=== PATIENT | male | born 1960 | race Caucasian/White ===

== ENCOUNTER 2022-11-24 07:07 | Day surgery (SDC) | payer OTHER, SELFPAY ==
[2022-10-17 08:24] VITALS: BMI 27.1
[2022-11-09 14:14] VITALS: BMI 27.1
--- NOTE | 2022-11-23 15:17 | P.HP_ITS ---
History of Present Illness History of Present Illness Consent: Risks, benefits, and alternatives have been discussed and questions answered. Patient agrees to proceed with procedure. Chief complaint: Neoplasm Screening Narrative: Moi Loja is a 62 year old male Referred for colon cancer screening. He has a family history of colon cancer. 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 Review of Systems Review of Systems: All systems reviewed & are unremarkable except as noted in HPI and below PMFSH Past Medical History Medical History Hyperlipidemia Overweight Smoker Surgical History Surgical History Hx of cervical spine surgery Family History Family History Father Colon cancer Mother CHF (congestive heart failure) Social History Social History Smoking packs per day: 1 Smoking cigarettes per day: 20.0 Years smoked: 40 Smoking pack-years: 40.00 Smoking status: Current every day smoker Tobacco type: cigarettes Alcohol intake: current Alcohol use details: socially Substance use: never Substance use type: does not use Living arrangements: with family Spiritual care concerns: No Meds Home Medications and Allergies Home Medications Medication Instructions Recorded Confirmed Type varenicline 0.5 mg (11)-1 mg (42) See Rx Instructions PO PER PKG DIR 09/29/22 11/24/22 Rx tablets in a dose pack ([email or web address] #53 ea Starting Month Box) rosuvastatin 40 mg tablet 40 mg PO DAILY #90 tabs 10/14/22 11/09/22 Rx Allergies Allergy/AdvReac Type Severity Reaction Status Date / Time No Known Allergies Allergy Verified 11/24/22 08:01 Exam Const: General: alert Orientation/consciousness: patient oriented x3 Resp: Auscultation: clear to auscultation bilaterally Cardio: Rhythm: regular rhythm GI: GI Palp: Yes Soft to palpation and No Tenderness to palpation present (GI) Neuro: General: patient oriented x3 Assessment and Plan Assessment and plan (1) Colon cancer screening: Code(s): Z12.11 - Encounter for screening for malignant neoplasm of colon Status: Acute Assessment and Plan: Colonoscopy with possible biopsy or polypectomy or cautery or injection of substances.
[2022-11-24 07:53] VITALS: BP 135/90; PULSE 85; RESP 18; TEMP 36.7; O2SAT 98; BMI 27.1
[2022-11-24] MEDS: LACTATED RINGERS 1,000 ML 150 ML IV CONT (08:10)
--- NOTE | 2022-11-24 08:18 | WPDANESEPPF ---
Anes - Initial Pre Proc Eval Procedure: Operation Date: 11/24/22 09:00 Proposed Procedures p Screening Colonoscopy - Aldo Woo MD Date/Time: 11/24/22 08:18 Surgeon: Aldo Woo MD Pre Op Diagnosis: Neoplasm Screening Patient Data Age: 62 Gender: M Height: 1.78 m Weight: 85.6 kg Last Vital Signs Temp 36.7 C 11/24/22 07:53 Pulse 85 11/24/22 07:53 Resp 18 11/24/22 07:53 BP 135/90 11/24/22 07:53 Pulse Ox 98 11/24/22 07:53 O2 Del Method Room Air 11/24/22 07:53 Allergies Allergy/AdvReac Type Severity Reaction Status Date / Time No Known Allergies Allergy Verified 11/24/22 08:01 Home Medications Medication Instructions Recorded Confirmed Type varenicline 0.5 mg (11)-1 mg (42) See Rx Instructions PO PER PKG DIR 09/29/22 11/24/22 Rx tablets in a dose pack ([employer] #53 ea Starting Month Box) rosuvastatin 40 mg tablet 40 mg PO DAILY #90 tabs 10/14/22 11/09/22 Rx Patient hx anesthesia problems: none Family hx anesthesia problems: none Results Review: All pre-operative results and documents have been reviewed as part of the pre-operative evaluation. [facility] Past Medical History Medical History Hyperlipidemia Overweight Smoker Surgical History Surgical History Hx of cervical spine surgery Family History Family History Father Colon cancer Mother CHF (congestive heart failure) Social History Social History Smoking packs per day: 1 Smoking cigarettes per day: 20.0 Years smoked: 40 Smoking pack-years: 40.00 Smoking status: Current every day smoker Tobacco type: cigarettes Alcohol intake: current Alcohol use details: socially Substance use: never Substance use type: does not use Living arrangements: with family Spiritual care concerns: No Anes - Eval Final PreProcedure Day of Procedure 11/24/22 08:18 Patient weight: overweight Heart: regular rate and rhythm Lungs: clear to auscultation Airway: Mallampati scale class II Neurological: alert and oriented Last oral intake: >/= 8 hours ASA classification: III Emergent: no Anesthetic plan: proceed Anesthesia type and monitoring: general GIVS and standard monitoring Results Review: All pre-operative results and documents have been reviewed as part of the pre-operative evaluation. Informed Consent: The patient's anesthetic plan and its attendant risks and benefits were discussed with the patient/family/POA. Questions were solicited and answers provided to the satisfaction of the patient/family/POA.
[2022-11-24 09:24] VITALS: BP 116/66; PULSE 83; RESP 14; O2SAT 97
[2022-11-24 09:36] VITALS: BP 119/99; PULSE 86; RESP 14; O2SAT 98
[2022-11-24 09:44] VITALS: BP 139/87; PULSE 70; RESP 15; O2SAT 99
--- NOTE | 2022-11-24 09:48 | WPDANESPN ---
Anes - Prog Note Post-Op Date/Time: 11/24/22 09:48 Cardiovascular status: normal Respiratory status: normal Airway patency: baseline Mental status: baseline Post-Op hydration status: normal Vital Signs: Last Vital Signs Temp 36.7 C 11/24/22 07:53 Pulse 86 11/24/22 09:36 Resp 14 11/24/22 09:36 BP 119/99 H 11/24/22 09:36 Pulse Ox 98 11/24/22 09:36 O2 Del Method Room Air 11/24/22 09:36 Pain Score (VAS): 0/10 Patient Feedback: Patient satisfied with anesthetic care.
== END 2022-11-24 09:58 | disposition home or self-care (01) ==
PROVIDERS: PCP Family Medicine Adolescent Medicine; Visit Provider Internal Medicine Gastroenterology
PROC: 0DJD8ZZ Inspection of Lower Intestinal Tract, Via Natural or Artificial Opening Endoscopic (ICD-10-PCS; CPT 45378; principal; 2022-11-24 09:00)
DX: Z12.11 Encounter for screening for malignant neoplasm of colon (principal)
CPT/HCPCS: 45385

== ENCOUNTER 2022-11-24 09:00 | Outpatient (NON) | payer OTHER, SELFPAY | END 2022-11-24 09:01 | disposition home or self-care (01) | PROVIDERS: PCP Family Medicine Adolescent Medicine; Visit Provider Internal Medicine Gastroenterology | DX: D12.2 Benign neoplasm of ascending colon (principal) | CPT/HCPCS: 88305 ==

== ENCOUNTER 2024-04-01 14:12 | Outpatient (CLI) | payer OTHER, SELFPAY ==
--- NOTE | ~2024-04-01 | CT_ITS ---
CT Scan of the Chest without Contrast: Clinical Indication: Lung cancer screening, nicotine dependence Technique: Contiguous sections were acquired throughout the chest without intravenous contrast. Dose reduction technique was used on this scan by utilizing automated exposure control and iterative recon struction technique. The dose-length product (DLP) was 149.13 mGy-cm. Findings: There is no evidence of any significant mediastinal, hilar or axillary lymphadenopathy. Coronary chey ry calcifications are present. There is no evidence of pleural or pericardial effusion. The lungs are clear. No pulmonary nodules or infiltrates are noted. Images through the upper abdomen reveal no abnormalities. Impression: Lung RADS 1: Negative. 12 month follow-up screening CT advised. Reviewed, dictated and finalized at location . Impression: Lung RADS 1: Negative. 12 month follow-up screening CT advised.
== END 2024-04-01 14:13 | disposition home or self-care (01) ==
LOC: MICIMG 14:12
PROVIDERS: PCP Family Medicine Adolescent Medicine; Visit Provider Family Medicine Adolescent Medicine
DX: Z12.2 Encounter for screening for malignant neoplasm of respiratory organs (principal); Z87.891 Personal history of nicotine dependence
CPT/HCPCS: 71271